=== PATIENT | male | born 1995 | race Caucasian/White ===

== ENCOUNTER 2025-01-11 16:29 | Emergency (ER) | payer SELFPAY ==
--- OUTSIDE RECORDS SUMMARY | 2022-10-14 10:05 | XMS_ITS | Continuity of Care Document ---
Author Organization Complete [facility] Address [address] [place] [address] Phone Care Team Providers Care Medical Secretary Teacher Name Role Phone Rosita Ventura Unavailable Unavailable Procedures Procedure Date Drug Screen Multi Drug Class Drug Screen Multi Drug Class PURE TONE AUDIOMETRY, AIR Advance Directives Directive Yes / No Effective Date File Name No Information Encounters Encounter Description Practice Location Reason(s) For Visit Diagnoses Date Provider Providers Copied on Encounter Complete [facility], [address] [place] [address], [id number], tel:[phone] [facility] No Information Primo Becker. [address], [address], [place]. tel:[phone] Referring Provider: Rosita Medrano, [address], [address]. tel:[phone] [facility], [address] [place] [address], [id number], tel:[phone] [facility] No Information Fidel Reese. [address] [place] [address], [id number], . tel:[phone] Referring Provider: Mary Ann Parra, [address] [place] [address], [id number]. tel:[phone] Family History Family Member Type Diagnosis Age At Onset No Information Payers Payer name Insurance type Covered green party ID Authoriza tion(s) No Information Social History Type Description Quantity Date Captured Comments Alcohol Use Details Unknown Caffeine Use Details Unknown Tobacco Use Status No Information Smoking Status No Information Sex Male Chief Complaint And Reason For Visit No Information Reason For Referral Reason For Referral No Information History Of Present Illness Encounter Date Complaint History Of Prese nt Illness No Information Functional Status Date Functional Assessmen t No Information Instructions Date Instruction Additional Infor mation No Information Assessments Type Assessment Date No Information Patient Care Teams Name Effective Dates (start - stop) Status Members No Information
--- OUTSIDE RECORDS SUMMARY | 2022-10-14 10:05 | XMS_ITS | Continuity of Care Document ---
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 [address], [address], [place]. tel:[phone] Referring Provider: Rosita Medrano, [address], [address]. tel:[phone] [facility], [address] [place] [address], [id number], tel:[phone] [facility] No Information Fidel Reese. [address] [place] [address], [id number], . tel:[phone] Referring Provider: Mary Ann Parra, [address] [place] [address], [id number]. tel:[phone] Family History Family Member Type Diagnosis Age At Onset No Information Payers Payer name Insurance type Covered republican ID Authoriza tion(s) No Information Social History [...]
[2025-01-11 16:48] VITALS: BP 138/88; PULSE 77; RESP 16; TEMP 36.5; O2SAT 99
--- NOTE | 2025-01-11 17:16 | ED.SKABFB ---
HPI - Skin/Abscess/Foreign Bdy General Chief complaint: Skin/Abscess/Foreign Body <Zoraida Man PA-C - Last Filed: 01/13/25 14:22> Stated complaint: redness to right arm <Zoraida Man PA-C - Last Filed: 01/13/25 14:22> Time Seen by Provider: 01/11/25 17:16 <Zoraida Man PA-C - Last Filed: 01/13/25 14:22> Focused HPI: This is a 30 year old male that presents to the ER for redness and swelling to the right arm. Ongoing over the last couple of days. Denies fevers. GENERAL: Well-appearing, well-nourished, and in no acute distress. HEAD: Normocephalic, atraumatic. CHEST: No respiratory distress. HEART: Regular rate SKIN: Area of redness to the right upper arm with lymphangitic streaking present NEURO: ?Alert and oriented x3. Patient screened in triage and initial orders placed.? ?Additional care and disposition to be based upon?diagnostic testing and treatment. <Zoraida Man PA-C - Last Filed: 01/13/25 14:22> History of Present Illness HPI narrative: Agree with HPI. <Zeke Florence DO - Last Filed: 01/11/25 22:58> Related Data Allergies/Adverse reactions: Allergies Allergy/AdvReac Type Severity Reaction Status Date / Time No Known Allergies Allergy Verified 01/11/25 16:52 <Zoraida Man PA-C - Last Filed: 01/13/25 14:22> Review of Systems Review of Systems: Gen.: Denies fevers or chills Eyes: Denies eye pain or visual change ENT: Denies congestion Respiratory: Denies shortness of breath or cough CV: Denies chest pain or palpitations GI: Denies abdominal pain nausea, emesis or diarrhea denies burning, urgency, frequency or hematuria Musculoskeletal: Denies back pain or muscle pain Neuro: Denies numbness, tingling, weakness or focal weakness Skin: As per HPI Except as documented, all other systems reviewed and negative <Zeke Florence DO - Last Filed: 01/11/25 22:58> Exam Narrative: APPEARANCE: No acute distress, nontoxic, resting in bed HEENT: Normocephalic, atraumatic, OMM RESPIRATORY: No respiratory distress CARDIOVASCULAR: Appears well perfused ABDOMINAL: Nondistended MUSCULOSKELETAl: Moves all extremities. No obvious deformities NEURO: Awake and alert. SKIN:: Area of redness ot the right upper arm with lymphangitic streaking present PSYCHIATRIC: Normal affect/mood, <Zkee Florence DO - Last Filed: 01/11/25 22:58> Course Vital Signs Vital signs: Vital Signs Temperature 97.7 F 01/11/25 16:48 Pulse Rate 77 01/11/25 16:48 Respiratory Rate 16 01/11/25 16:48 Blood Pressure 138/88 01/11/25 16:48 Pulse Oximetry 99 01/11/25 16:48 Oxygen Delivery Room Air 01/11/25 16:48 Temperature 98.5 F 01/11/25 19:54 Pulse Rate 80 01/11/25 19:54 Respiratory Rate 18 01/11/25 19:54 Blood Pressure 130/73 01/11/25 19:54 Pulse Oximetry 100 01/11/25 19:54 Oxygen Delivery Room Air 01/11/25 18:01 <Zoraida Man PA-C - Last Filed: 01/13/25 14:22> Vital Signs Temperature 97.7 F 01/11/25 16:48 Pulse Rate 77 01/11/25 16:48 Respiratory Rate 16 01/11/25 16:48 Blood Pressure 138/88 01/11/25 16:48 Pulse Oximetry 99 01/11/25 16:48 Oxygen Delivery Room Air 01/11/25 16:48 Temperature 98.5 F 01/11/25 19:54 Pulse Rate 80 01/11/25 19:54 Respiratory Rate 18 01/11/25 19:54 Blood Pressure 130/73 01/11/25 19:54 Pulse Oximetry 100 01/11/25 19:54 Oxygen Delivery Room Air 01/11/25 18:01 <Zeke Florence DO - Last Filed: 01/11/25 22:58> MDM - Skin/Abscess/Foreign Bdy MDM Narrative Medical decision making narrative: 30-year-old male Presenting for bug bite versus rash. On initial evaluation patient was in no acute distress afebrile, hemodynamic stable. Differentials include but are not limited to: Insect bite, spider bite, cellulitis Notable exam findings: Area of erythema to the right arm with early signs of lymphangitis Notable lab findings: CBC and a CMP without significant abnormalities. CRP within normal limits Patient was well appearing otherwise. Labs are reassuring. Given the very reassuring labs and the well appearance of the patient, a single IV dose of doxycycline here in the ED with a course of p.o. doxycycline at home would be sufficient treatment for this patient. The area outer borders of the erythema was marked so patient can track any extension of erythema further. He was advised to return to the ED if he noted that there was further streaking. Patient was agreeable to this plan. Given strict return precautions. <Zeke Florence DO - Last Filed: 01/11/25 22:58> Medical Records Attestation: I reviewed the patient's medical records. <Zeke Florence DO - Last Filed: 01/11/25 22:58> Lab Data Attestation: I reviewed the patient's lab results. <Zeke Florence DO - Last Filed: 01/11/25 22:58> Result diagrams: 01/11/25 17:33 01/11/25 17:33 <Zoraida Man PA-C - Last Filed: 01/13/25 14:22> Labs: Lab Results 01/11/25 Range/Units 17:33 WBC 7.1 (4.5-10.0) K/mm3 RBC 4.51 L (4.6-6.20) M/mm3 Hgb 14.3 (14.0-18.0) g/dL Hct 40.3 L (42.0-52.0) % MCV 89.4 (80-100) fl MCH 31.7 (26-34) pg MCHC 35.5 (32-36) g/dl RDW 12.6 (11.5-14.5) % Plt Count 221 (150-375) k/mm3 MPV 10.0 (7.4-10.4) fl Immature Gran % (Auto) 0.4 (0-0.5) % Neut % (Auto) 39.3 L (45.5-73.1) % Lymph % (Auto) 44.9 H (18.3-44.2) % Hardeman % (Auto) 9.5 H (2.6-8.5) % Eos % (Auto) 5.2 H (0-4.4) % Baso % (Auto) 0.7 (0.2-1.2) % Lymph # (Auto) 3.17 (0.9-3.2) K/mm3 Hardeman # (Auto) 0.7 H (0.1-0.6) K/mm3 Eos # (Auto) 0.4 H (0-0.3) K/mm3 Baso # (Auto) 0.1 (0.0-0.1) K/mm3 Abs Immat Gran (auto) 0.03 (0.00-0.031) K/mm3 Absolute Neuts (auto) 2.8 (1.3-6.7) K/mm3 Absolute Nucleated RBC 0.000 (0.0-0.012) K/mm3 Nucleated RBC % 0.0 (0.0-0.2) % ESR 9 (0-20) mm/hr Sodium 137 (137-145) mmol/L Potassium 3.8 (3.4-5.0) mmol/L Chloride 105 (98-107) mmol/L Carbon Dioxide 25 (22-30) mmol/L Anion Gap 7 (4-12) mmol/L BUN 16 (9-20) mg/dL Creatinine 1.31 H (0.7-1.3) mg/dL Estim Creat Clear Calc 83 ml/min Estimated GFR > 60 (59 - ) Glucose 84 (65-110) mg/dL Calcium 8.9 (8.4-10.2) mg/dL C-Reactive Protein < 0.5 (<1.0) mg/dL <Zoraida Man PA-C - Last Filed: 01/13/25 14:22> Lab Results 01/11/25 Range/Units 17:33 WBC 7.1 (4.5-10.0) K/mm3 RBC 4.51 L (4.6-6.20) M/mm3 Hgb 14.3 (14.0-18.0) g/dL Hct 40.3 L (42.0-52.0) % MCV 89.4 (80-100) fl MCH 31.7 (26-34) pg MCHC 35.5 (32-36) g/dl RDW 12.6 (11.5-14.5) % Plt Count 221 (150-375) k/mm3 MPV 10.0 (7.4-10.4) fl Immature Gran % (Auto) 0.4 (0-0.5) % Neut % (Auto) 39.3 L (45.5-73.1) % Lymph % (Auto) 44.9 H (18.3-44.2) % Hardeman % (Auto) 9.5 H (2.6-8.5) % Eos % (Auto) 5.2 H (0-4.4) % Baso % (Auto) 0.7 (0.2-1.2) % Lymph # (Auto) 3.17 (0.9-3.2) K/mm3 Hardeman # (Auto) 0.7 H (0.1-0.6) K/mm3 Eos # (Auto) 0.4 H (0-0.3) K/mm3 Baso # (Auto) 0.1 (0.0-0.1) K/mm3 Abs Immat Gran (auto) 0.03 (0.00-0.031) K/mm3 Absolute Neuts (auto) 2.8 (1.3-6.7) K/mm3 Absolute Nucleated RBC 0.000 (0.0-0.012) K/mm3 Nucleated RBC % 0.0 (0.0-0.2) % ESR 9 (0-20) mm/hr Sodium 137 (137-145) mmol/L Potassium 3.8 (3.4-5.0) mmol/L Chloride 105 (98-107) mmol/L Carbon Dioxide 25 (22-30) mmol/L Anion Gap 7 (4-12) mmol/L BUN 16 (9-20) mg/dL Creatinine 1.31 H (0.7-1.3) mg/dL Estim Creat Clear Calc 83 ml/min Estimated GFR > 60 (59 - ) Glucose 84 (65-110) mg/dL Calcium 8.9 (8.4-10.2) mg/dL C-Reactive Protein < 0.5 (<1.0) mg/dL <Zeke DO Ludivina - Last Filed: 01/11/25 22:58> Discharge Plan Discharge Clinical Impression: Cellulitis Qualifiers: Site of cellulitis: extremity Site of cellulitis of extremity: upper extremity Laterality: right Qualified Code(s): L03.113 - Cellulitis of right upper limb <JESUS Osorio Last Filed: 01/13/25 14:22> Patient Disposition: Home <JESUS Osorio Last Filed: 01/13/25 14:22> Condition: Stable <JESUS Osorio Last Filed: 01/13/25 14:22> Instructions: Antibiotic Form, Cellulitis (ED) <JESUS Osorio Last Filed: 01/13/25 14:22> Additional Instructions: Take doxycycline as prescribed. Continue to monitor the spread of the redness. If it protrudes beyond the markers, return to the ED. Your given a referral to Dr. Walton to establish care. <JESUS Osorio Last Filed: 01/13/25 14:22> Patient Language: Tamazight <JESUS Osorio Last Filed: 01/13/25 14:22> Prescriptions: New doxycycline hyclate 100 mg capsule 100 mg PO BID Qty: 14 0RF <JESUS Osorio Last Filed: 01/13/25 14:22> Follow-up/Referrals: Dennys Walton MD [Physician, Family Practice] PHYSICIAN,PACKAGE DELIVERY DRIVER [Primary Care Provider, Internal Medicine] <JESUS Osorio Last Filed: 01/13/25 14:22>
[2025-01-11 17:41] LABS: Hematocrit 40.3 % (42.0-52.0); Hemoglobin 14.3 g/dL (14.0-18.0); Immature Granulocyte Percent A 0.4 % (0-0.5); Lymphocytes Absolute Auto 3.17 K/mm3 (0.9-3.2); Mean Corpuscular HGB Conc 35.5 g/dl (32-36); Mean Corpuscular Hemoglobin 31.7 pg (26-34); Mean Corpuscular Volume 89.4 fl (80-100); Nucleated Red Blood Cells Absolute Auto 0.000 K/mm3 (0.0-0.012); Nucleated Red Blood Cells Perc 0.0 % (0.0-0.2); Platelet Count Result 221 k/mm3 (150-375); Red Blood Count 4.51 M/mm3 (4.6-6.20); White Blood Count 7.1 K/mm3 (4.5-10.0)
[2025-01-11 17:52] LABS: Anion Gap 7 mmol/L (4-12); Blood Urea Nitrogen 16 mg/dL (9-20); CRP < 0.5 mg/dL (<1.0); Calcium 8.9 mg/dL (8.4-10.2); Carbon Dioxide 25 mmol/L (22-30); Chloride 105 mmol/L (98-107); Estimated CRCL calculation 83 ml/min; Estimated Glomerular Filt Rate > 60; Glucose 84 mg/dL (65-110); Potassium 3.8 mmol/L (3.4-5.0); Sodium 137 mmol/L (137-145)
[2025-01-11 18:01] VITALS: BP 142/80; PULSE 62; RESP 14; O2SAT 99
[2025-01-11] MEDS: DOXYCYCLINE IV 100 MG in SODIUM CHLORIDE 0.9% IV 100 ML IVPB (18:43)
[2025-01-11 19:54] VITALS: BP 130/73; PULSE 80; RESP 18; TEMP 36.9; O2SAT 100
== END 2025-01-11 19:56 | disposition home or self-care (01) ==
LOC: ANHED 18:44
PROVIDERS: Physician Assistant; Emergency Provider Student in an Organized Health Care Education/Training Program
DX: L03.113 Cellulitis of right upper limb (principal)
CPT/HCPCS: 36415; 80048; 85025; 85652; 86140; 96365; 99284

== ENCOUNTER 2025-01-15 13:19 | Emergency (ER) | payer SELFPAY ==
--- OUTSIDE RECORDS SUMMARY | 2022-10-14 10:05 | XMS_ITS | Continuity of Care Document ---
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 [address], [address], [place]. tel:[phone] Referring Provider: Rosita Medrano, [address], [address]. tel:[phone] [facility], [address] [place] [address], [id number], tel:[phone] [facility] No Information Fidel Reese. [address] [place] [address], [id number], . tel:[phone] Referring Provider: Mary Ann Parra, [address] [place] [address], [id number]. tel:[phone] Family History Family Member Type Diagnosis Age At Onset No Information Payers Payer name Insurance type Covered libertarian ID Authoriza tion(s) No Information Social History [...]
[2025-01-15 13:21] VITALS: BP 127/76; PULSE 76; RESP 15; TEMP 36.6; O2SAT 100
== END 2025-01-15 13:54 | disposition left against medical advice (07) ==
LOC: ANHED 13:52
DX: L50.9 Urticaria, unspecified (principal)
CPT/HCPCS: 99199